=== PATIENT | female | born 1945 | race Caucasian/White ===

== ENCOUNTER → 2017-06-11 | Outpatient (REF) | payer MEDICARE, OTHER | LOC: M LAB REF 09:50 | PROVIDERS: ATTEND Ophthalmology | DX: D23.12 Other benign neoplasm of skin of left eyelid, including canthus (principal) ==

== ENCOUNTER → 2017-11-19 | Outpatient (CLI) | payer MEDICARE, OTHER | LOC: M RAD 11:46 | DX: I65.23 Occlusion and stenosis of bilateral carotid arteries (principal) | CPT/HCPCS: 93880 ==

== ENCOUNTER → 2021-06-24 | Outpatient (CLI) | payer MEDICARE, OTHER ==
--- NOTE | 2021-06-24 09:38 | REP ---
INDICATION: ABN FINDINGS OF LUNG FIELD. COMPARISON: 03/06/2021. TECHNIQUE: CT chest performed without the use of intravenous contrast. Sagittal and coronal reconstruction images are performed. FINDINGS: Lungs: In the right upper lobe with there is an area of ill-defined mixed interstitial and alveolar parenchymal opacity again seen, unchanged. A denser band of density is seen centrally within this area. There is mild bronchiectasis also seen in this region. No other significant abnormal parenchymal opacities are seen bilaterally. Mediastinum: No gross adenopathy. Corrine: No gross adenopathy. Axilla: No gross adenopathy. Pleura: No effusion. Heart: Not enlarged. Thoracic aorta: No aneurysm. Upper abdominal structures: Grossly unremarkable. Visualized osseous structures: There are multiple old posterior and lateral right rib fractures. There are degenerative changes of the spine without compression deformity. IMPRESSION: No significant change in the ill-defined right upper lobe parenchymal opacity, with a denser band of density centrally within this area. There is also mild bronchiectasis in this region. Continued follow-up recommended. <Electronically signed by Bob Christianson > 06/24/21 [id number]
== END ==
LOC: M RAD 08:47
PROVIDERS: ATTEND Internal Medicine Pulmonary Disease
DX: R91.8 Other nonspecific abnormal finding of lung field (principal)

== ENCOUNTER → 2021-07-08 | Outpatient (CLI) | payer MEDICARE, OTHER ==
--- NOTE | 2021-07-09 10:49 | REPVR ---
PROCEDURE INFORMATION: Exam: MR Head Without Contrast Exam date and time: 07/08/2021 10:50 AM Age: 75 years old Clinical indication: Altered mental status/memory loss TECHNIQUE: Imaging protocol: MR of the head without contrast. COMPARISON: No relevant prior studies available. FINDINGS: Brain: The ventricles and sulci are proportionally enlarged, consistent with age related volume loss / atrophy. There is T2 prolongation in the cerebral white matter, consistent with microvascular disease. Christianson white differentiation is intact. Diffusion weighted images show no restricted diffusion or evidence of acute infarct. There is no mass effect or midline shift. There is no acute intracranial hemorrhage. There are no extra-axial fluid collections. Cerebral ventricles: Normal. No ventriculomegaly. Bones/joints: Unremarkable as visualized. Paranasal sinuses: Normal as visualized. No acute sinusitis. Mastoid air cells: No significant mastoid effusion. Soft tissues: Unremarkable as visualized. Other vasculature: Flow voids in main vascular structures are visualized. IMPRESSION: 1. No evidence of acute intracranial abnormality. No evidence of acute infarction, hemorrhage, or mass. 2. Atrophy and microvascular disease. Electronically signed by: Haydee Regan On 07/09/2021 10:49:44 AM
== END ==
LOC: M PLAIMG 09:50
PROVIDERS: ATTEND Physician Assistant
DX: R41.3 Other amnesia (principal)

== ENCOUNTER → 2021-12-15 | Outpatient (CLI) | payer MEDICARE, OTHER | LOC: M PLARAD 11:05 | PROVIDERS: ATTEND Internal Medicine Pulmonary Disease | DX: R91.8 Other nonspecific abnormal finding of lung field (principal) | CPT/HCPCS: 78815; A9552 ==

== ENCOUNTER → 2022-04-06 | Outpatient (CLI) | payer MEDICARE, OTHER | LOC: M RAD 11:02 | PROVIDERS: ATTEND Internal Medicine Pulmonary Disease | DX: R91.8 Other nonspecific abnormal finding of lung field (principal) ==

== ENCOUNTER → 2022-10-23 | Outpatient (CLI) | payer MEDICARE, OTHER | LOC: M PLAIMG 10:32 | PROVIDERS: ATTEND Internal Medicine Pulmonary Disease | DX: R91.1 Solitary pulmonary nodule (principal) ==

== ENCOUNTER → 2022-11-10 | Outpatient (CLI) | payer MEDICARE, OTHER ==
[~2022-11-10] MED LIST: ATEN25TA PO; B-12100010 PO; BUSP10TA PO; BYDU2INJ7 SC; CLOP75TA2 PO; ESTR1TAB PO; HYDR-3910 PO; METF750T36 PO; SIMV40TA20 PO; SPIR-10 PO; VENL150C43 PO; VITA100093 PO
== END ==
LOC: M LABSMTC 09:09
PROVIDERS: ATTEND Anesthesiology
DX: Z01.812 Encounter for preprocedural laboratory examination (principal); Z20.822 Contact with and (suspected) exposure to COVID-19

== ENCOUNTER 2022-11-13 11:09 | Day surgery (SDC) | payer MEDICARE, OTHER ==
[~2022-11-13] VITALS: Ht 147.3 cm; Wt 56.2 kg
[~2022-11-13 11:09] MED LIST changes: +VANCOMYCIN HCL 1,000 MG, VIAL MATE ADAPTER 1 EACH in D5W 250 ML IV ONE
[2022-11-13] MEDS ORDERED: LR 1,000 ML IV SCH (11:30)
[2022-11-13] MEDS ORDERED: fentaNYL 100 MCG/2 ML INJECTION As Ordered ONE (12:33)
[2022-11-13] MEDS ORDERED: LIDOCAINE 2% 100MG/5ML SDV (FOR ANES.) As Ordered ONE (12:33)
[2022-11-13] MEDS ORDERED: propofoL 200 MG/20 ML VIAL As Ordered ONE ×2 (12:33→13:05)
[2022-11-13] MEDS ORDERED: LIDOCAINE 1% SDV 30ML VIAL As Ordered ONE (12:37)
[2022-11-13] MEDS ORDERED: ACETAMINOPHEN 1000MG 100ML IV BAG As Ordered ONE (13:10)
[2022-11-13] MEDS ORDERED: ONDANSETRON 4MG 2ML VIAL As Ordered ONE (13:15)
[2022-11-13 14:11] VITALS: BP 156/81
== END 2022-11-13 14:44 | disposition home or self-care (01) ==
LOC: M SDC 11:09
PROVIDERS: ATTEND Internal Medicine Cardiovascular Disease
DX: R55 Syncope and collapse (principal); I10 Essential (primary) hypertension; E11.9 Type 2 diabetes mellitus without complications; E78.5 Hyperlipidemia, unspecified; J45.909 Unspecified asthma, uncomplicated; F41.9 Anxiety disorder, unspecified; F32.A Depression, unspecified; Z79.84 Long term (current) use of oral hypoglycemic drugs; Z79.899 Other long term (current) drug therapy; Z88.0 Allergy status to penicillin; Z91.040 Latex allergy status; Z88.2 Allergy status to sulfonamides; Z91.013 Allergy to seafood
CPT/HCPCS: 33285; C1764; J0131; J2405; J3010

== ENCOUNTER → 2023-02-08 | Outpatient (CLI) | payer MEDICARE, OTHER ==
[~2023-02-08] MED LIST changes: -VANCOMYCIN HCL 1,000 MG, VIAL MATE ADAPTER 1 EACH in D5W 250 ML IV ONE
== END ==
LOC: M PLAIMG 10:16
PROVIDERS: ATTEND Internal Medicine Pulmonary Disease
DX: R91.1 Solitary pulmonary nodule (principal)

== ENCOUNTER 2023-02-26 14:13 | Day surgery (SDC) | payer MEDICARE, OTHER ==
[~2023-02-26] VITALS: Ht 157.5 cm; Wt 55.8 kg
[~2023-02-26 14:13] MED LIST changes: +VANCOMYCIN HCL 1,000 MG, VIAL MATE ADAPTER 1 EACH in D5W 250 ML IV ONE
[2023-02-26] MEDS ORDERED: LR 1,000 ML IV SCH ×2 (14:40→20:00)
[2023-02-26] MEDS ORDERED: ACET-1349 PO (15:12)
[2023-02-26] MEDS ORDERED: HOME MED LIST COMPLETE! XX SCH (15:15)
[2023-02-26] MEDS: ISOVUE-300 61% 100ML VIAL As Ordered ONE ×2 (15:27→19:24)
[2023-02-26] MEDS ORDERED: propofoL 200 MG/20 ML VIAL As Ordered ONE (16:10)
[2023-02-26] MEDS ORDERED: LIDOCAINE 2% 100MG/5ML SDV (FOR ANES.) As Ordered ONE (16:10)
[2023-02-26] MEDS ORDERED: MIDAZOLAM INJ 2MG/2ML VIAL As Ordered ONE (16:10)
[2023-02-26] MEDS ORDERED: fentaNYL 100 MCG/2 ML INJECTION As Ordered ONE (16:10)
[2023-02-26] MEDS ORDERED: LIDOCAINE 1% SDV 30ML VIAL As Ordered ONE (16:35)
[2023-02-26] MEDS ORDERED: ACETAMINOPHEN 1000MG 100ML IV BAG As Ordered ONE (17:04)
[2023-02-26] MEDS ORDERED: ONDANSETRON 4MG 2ML VIAL As Ordered ONE (17:23)
[2023-02-26] MEDS ORDERED: DESFLURANE 240 ML INHALANT As Ordered ONE (17:38)
[2023-02-26] MEDS ORDERED: MORPHINE 2 MG/ML 1ML VIAL IV PRN (20:00)
[2023-02-26] MEDS ORDERED: ONDANSETRON 4MG 2ML VIAL IV PRN (20:00)
[2023-02-26] MEDS ORDERED: fentaNYL 100 MCG/2 ML INJECTION IV PRN (20:00)
[2023-02-26] MEDS ORDERED: oxyCODONE 5MG TAB PO PRN (20:00)
[2023-02-26] MEDS ORDERED: SIMVASTATIN 40 MG TAB PO SCH (21:00)
[2023-02-26] MEDS ORDERED: ACETAMINOPHEN TAB 650MG DOSE (2X325MG) PO PRN (21:10)
[2023-02-26 21:33] VITALS: BP 180/64
[2023-02-26] MEDS: ASCORBIC ACID 250 MG TAB PO SCH (21:58)
[2023-02-26] MEDS: **hydrALAZINE HCL** 25 MG TAB PO SCH (21:58)
[2023-02-26] MEDS: busPIRone 10 MG TAB PO SCH (22:04)
[2023-02-26 22:23] VITALS: BP 189/74
[2023-02-26 23:30] VITALS: BP 190/70
[2023-02-27] MEDS ORDERED: SPIRONOLACTONE 25 MG TAB PO ONE (01:00)
[2023-02-27 01:14] VITALS: BP 193/77
[2023-02-27 04:10] VITALS: BP 132/61
[2023-02-27 08:00] VITALS: BP 127/57
[2023-02-27] MEDS: busPIRone 10 MG TAB PO SCH (08:16)
[2023-02-27] MEDS: ASCORBIC ACID 250 MG TAB PO SCH (08:16)
[2023-02-27 08:17] VITALS: BP 132/61
[2023-02-27] MEDS: **hydrALAZINE HCL** 25 MG TAB PO SCH (08:17)
[2023-02-27] MEDS ORDERED: VENLAFAXINE **XR** 75MG CAPSULE PO SCH (09:00)
[2023-02-27] MEDS ORDERED: estradioL 1 MG TAB PO SCH (09:00)
[2023-02-27] MEDS ORDERED: VITAMIN D 1,000 INTERNATIONAL UNITS TABLET PO SCH (09:00)
[2023-02-27] MEDS ORDERED: CYANOCOBALAMIN 500 MCG TAB PO SCH (09:00)
[2023-02-27] MEDS ORDERED: SPIRONOLACTONE 25 MG TAB PO SCH (09:00)
[2023-02-27 10:07] VITALS: BP 147/64
[2023-02-27 10:49] LABS: CALCIUM LEVEL 8.6 MG/DL (8.3-10.6); CREATININE FOR GFR 1.3 MG/DL (0.55-1.30); GLOMERULAR FILTRATION RATE 42.4 (>39); MAGNESIUM LEVEL 1.6 MG/DL (1.8-2.4); POTASSIUM SERUM 5.4 MMOL/L (3.5-5.1)
[2023-02-27 11:58] VITALS: BP 144/64
[2023-03-04] MEDS ORDERED: **UNRESOLVED NON-FORMULARY MED ORDER XX SCH (09:00)
== END 2023-02-27 14:25 | disposition other institution (70) ==
LOC: M SDC 14:13 → ENRESERV 19:25 → M PCU 20:52 → M SDC 02-27 14:25
PROVIDERS: ATTEND Internal Medicine Cardiovascular Disease
DX: I44.2 Atrioventricular block, complete (principal); E11.9 Type 2 diabetes mellitus without complications; I10 Essential (primary) hypertension; E78.5 Hyperlipidemia, unspecified; Z79.84 Long term (current) use of oral hypoglycemic drugs; Z79.899 Other long term (current) drug therapy; Z87.891 Personal history of nicotine dependence; F41.9 Anxiety disorder, unspecified; F32.A Depression, unspecified; Z88.0 Allergy status to penicillin; Z88.2 Allergy status to sulfonamides; Z91.040 Latex allergy status; Z91.013 Allergy to seafood; Z88.8 Allergy status to other drugs, medicaments and biological substances
CPT/HCPCS: 33208; 33286; 36415; 71045; 71046; 76000; 80048; 83735; 87635; 93005; 93306; C1785; C1898; J0131; J2250; J2405; J3010; Q9967

== ENCOUNTER → 2023-10-08 | Outpatient (CLI) | payer MEDICARE, OTHER ==
[~2023-10-08] MED LIST changes: +ACET-1349 PO; -VANCOMYCIN HCL 1,000 MG, VIAL MATE ADAPTER 1 EACH in D5W 250 ML IV ONE
== END ==
LOC: M PLAIMG 10:37
PROVIDERS: ATTEND Internal Medicine Pulmonary Disease
DX: R91.1 Solitary pulmonary nodule (principal)

== ENCOUNTER → 2024-04-11 | Outpatient (CLI) | payer MEDICARE, OTHER ==
[~2024-04-11] MED LIST changes: -HYDR-3910 PO; +HYDR25TA87 PO
== END ==
LOC: M RAD 11:01
PROVIDERS: ATTEND Internal Medicine Pulmonary Disease
DX: R91.1 Solitary pulmonary nodule (principal); R91.8 Other nonspecific abnormal finding of lung field

== ENCOUNTER → 2025-05-03 | Outpatient (CLI) | payer MEDICARE, OTHER ==
[~2025-05-03] MED LIST changes: -BYDU2INJ7 SC; +EXEN2AUT SC
== END ==
LOC: M PLAIMG 11:02
PROVIDERS: ATTEND Internal Medicine Pulmonary Disease
DX: R91.1 Solitary pulmonary nodule (principal)

== ENCOUNTER → 2025-05-11 | Outpatient (CLI) | payer MEDICARE, OTHER ==
[~2025-05-11] MED LIST changes: +BUSP15TA47 PO; +FLUT1BLS2; +METO50TA7 PO; +TRUL10IN
[2025-05-11 12:26] LABS: PLATELET COUNT, AUTOMATED 224 10^3/uL (150-450)
[2025-05-11 12:38] LABS: INR 0.99
== END ==
LOC: M LAB 11:53
PROVIDERS: ATTEND Internal Medicine Pulmonary Disease
DX: R91.1 Solitary pulmonary nodule (principal)

== ENCOUNTER 2025-05-16 06:25 | Day surgery (SDC) | payer MEDICARE, OTHER ==
[~2025-05-16] VITALS: Ht 147.3 cm; Wt 57.2 kg
[2025-05-16] MEDS ORDERED: LR 1,000 ML IV SCH (06:55)
[2025-05-16] MEDS ORDERED: ROCURONIUM BROMIDE 50MG/5ML VIAL As Ordered ONE (07:09)
[2025-05-16] MEDS ORDERED: dexAMETHasone 4 MG/ML 1 ML VIAL As Ordered ONE (07:10)
[2025-05-16] MEDS ORDERED: ONDANSETRON 4MG 2ML VIAL As Ordered ONE (07:10)
[2025-05-16] MEDS ORDERED: LIDOCAINE 2% 100 MG/5 ML SDV (FOR ANES.) As Ordered ONE (07:11)
[2025-05-16] MEDS: CETACAINE SPRAY 5 GM As Ordered ONE (07:46)
[2025-05-16] MEDS: THROMBIN 5,000 UNITS VIAL As Ordered ONE (07:46)
[2025-05-16] MEDS: EPINEPHrine 1 MG/10 ML SYRINGE 1.5IN As Ordered ONE (07:46)
[2025-05-16] MEDS ORDERED: SUGAMMADEX SODIUM 500 MG/5 ML VIAL As Ordered ONE (08:19)
[2025-05-16] MEDS ORDERED: HYDROMORPHONE HCL 0.5 MG/0.5 ML SYRINGE IV PRN (08:30)
[2025-05-16] MEDS: ONDANSETRON 4MG 2ML VIAL IV PRN (09:37)
[2025-05-16 10:42] VITALS: BP 152/68; TEMP 97.7; O2SAT 96
== END 2025-05-16 11:04 | disposition home or self-care (01) ==
LOC: M SDC 06:25
PROVIDERS: ATTEND Internal Medicine Pulmonary Disease
DX: C34.91 Malignant neoplasm of unspecified part of right bronchus or lung (principal); Z88.0 Allergy status to penicillin; Z88.2 Allergy status to sulfonamides; Z91.040 Latex allergy status; Z91.013 Allergy to seafood
CPT/HCPCS: 31624; 31627; 31628; 31629; 31654; 71045; 76000; 87070; 87102; 87116; 87205; 87206; 88108; 88173; 88305; 88313; C1601; J0168; J1100; J2405; J3010; S2900

== ENCOUNTER → 2025-05-29 | Outpatient (CLI) | payer MEDICARE, OTHER | LOC: M PLARAD 10:37 | PROVIDERS: ATTEND Internal Medicine Pulmonary Disease | DX: R91.8 Other nonspecific abnormal finding of lung field (principal) | CPT/HCPCS: 78815; A9552 ==

== ENCOUNTER → 2025-08-14 | Outpatient (CLI) | payer MEDICARE, OTHER ==
[~2025-08-14] MED LIST changes: +DEXA4TA PO; +FOLI400T13 PO; +LIDO30CR18 TOP; +ONDA-84 PO
== END ==
LOC: M RAD 12:31
PROVIDERS: ATTEND Student in an Organized Health Care Education/Training Program
DX: C34.90 Malignant neoplasm of unspecified part of unspecified bronchus or lung (principal); K57.90 Diverticulosis of intestine, part unspecified, without perforation or abscess without bleeding; M16.0 Bilateral primary osteoarthritis of hip; I70.0 Atherosclerosis of aorta; Z95.0 Presence of cardiac pacemaker

== ENCOUNTER → 2025-08-18 | Outpatient (CLI) | payer MEDICARE, OTHER ==
[~2025-08-18] VITALS: Ht 147.3 cm; Wt 52.7 kg
[2025-08-18 07:34] VITALS: TEMP 97.9
[2025-08-18] MEDS: NS (Normal Saline) 0.9% 1,000 ML IV SCH (08:12)
[2025-08-18] MEDS: ceFAZolin SODIUM 2 GM in DEXTROSE 5% (D5W) ADV/MINI-BAG 50 ML IV ONE (08:12)
[2025-08-18] MEDS: MIDAZOLAM INJ 2 MG/2 ML VIAL IV PRN (08:13)
[2025-08-18] MEDS: LIDOCAINE 1% MDV 20 ML VIAL SC SCH (08:21)
[2025-08-18 09:00] VITALS: BP 180/73; O2SAT 95
== END ==
LOC: M IRPRO 07:31
PROVIDERS: ATTEND Student in an Organized Health Care Education/Training Program
DX: C34.90 Malignant neoplasm of unspecified part of unspecified bronchus or lung (principal)
CPT/HCPCS: 36561; 76937; 99152; J0688; J1642; J2250; J3010

== ENCOUNTER → 2025-09-03 | Outpatient (POV) | payer MEDICARE, OTHER ==
[~2025-09-03] MED LIST changes: +NEUR100C PO
== END ==
LOC: M IRPOV 14:00 → EDSTATUS 10-15 12:25
PROVIDERS: ATTEND Registered Nurse School
DX: C34.90 Malignant neoplasm of unspecified part of unspecified bronchus or lung (principal); Z79.85 Long-term (current) use of injectable non-insulin antidiabetic drugs; Z79.899 Other long term (current) drug therapy; Z87.891 Personal history of nicotine dependence; Z88.0 Allergy status to penicillin; Z88.2 Allergy status to sulfonamides; Z88.8 Allergy status to other drugs, medicaments and biological substances; Z91.040 Latex allergy status; Z91.013 Allergy to seafood